=== PATIENT | female | born 1965 | race Asian ===

== ENCOUNTER 2018-02-22 17:07 | Emergency (ER) | payer SELFPAY ==
[2018-02-22] MEDS ORDERED: diphenhydrAMINE 50 MG/ML VIAL ONE (18:02)
[2018-02-22] MEDS ORDERED: Morphine 10 MG/ML VIAL ONE (18:02)
[2018-02-22] MEDS ORDERED: HYDROcodone/Acetaminophen 5/325 mg Tablet ONE (18:11)
--- NOTE | 2018-02-22 23:51 | RAD ---
LEFT FOREARM TWO VIEWS: 02/22/18 There is a comminuted fracture of the distal radius. At least one of the fragments is displaced anter iorly by quite a bit. Proximal forearm appeared intact. While not optimal on this study, the carpal r elations seem basically normal. IMPRESSION: Comminuted fracture of the distal radius with extension into the radiocarpal joint. One of the fragme nts is significantly displaced. Further imaging is probably needed. POS: HOME
== END 2018-02-22 18:42 | disposition home or self-care (01) ==
LOC: BURERS 17:07
DX: S52.572A Other intraarticular fracture of lower end of left radius, initial encounter for closed fracture (principal); V86.69XA Passenger of other special all-terrain or other off-road motor vehicle injured in nontraffic accident, initial encounter
CPT/HCPCS: 29125; J1200; J2270